=== PATIENT | female | born 1960 | race Hispanic/Latino ===

== ENCOUNTER 2021-03-17 16:36 | Emergency (ER) | payer OTHER ==
--- OUTSIDE RECORDS SUMMARY | 2021-03-17 16:39 | XMS REPORT | Continuity of Care Document ---
:1960 Author Organization [facility] t Address [address] [place] [address] Care Team Providers Name Role Phone Pcp, Does Not Have A Primary Care Physician Yong MOREAU Attending Clinician Unavailable Only, Db Test Attending Clinician Unavailable Unknown Attending Clinician Unavailable UNKNOWN Attending Clinician Unavailable Doctor Unassigned, Name Attending Clinician Unavailable Sherry MOREAU Attending Clinician Unavailable Janis Cohn DO Attending Clinician Jax PUENTES Attending Clinician Payers Payer Name Policy Type Policy Number Effective Date Expiration Date Kuldip paula MEDICARE PART A [id number] 2011 \T\ B 00:00:00 MEDICAID OF [place] [id number] 2012 00:00:00 Problems Condition Condition Condition Status Onset Resolution Last Treating Co mments Source Name Details Category Date Date Treatment Clinician Date Polycythem Polycythem Disease Active U ankush ia ia 8-15 ity of 00:00: [place] [address] Medical Branch General General Disease Active Overview: Univ ers counseling counseling 8-14 ICD10 it y of and advice and advice 00:00: Diagnosis [place] for for 00 Term Medical contracept contracept [employer] Branch tee tee Utility management management Encounter Encounter Disease Active Overview: [facility] for for 8-14 ICD10 ity of sterilizat sterilizat 00:00: Diagnosis [place] ion ion 00 Term Medical [employer] Branch Utility Lipoma of [place] of Disease Active Uni vers back back 8-14 ity of 00:00: [place] [address] Medical Branch Allergies, Adverse Reactions, Alerts Allergy Allergy Status Severity Reaction(s) Onset Inactive Treating Comm ents Source Name Type Date Date Clinician NO KNOWN Drug Active Univers ALLERGIE Class ity of S [facility] Acyclovi Adverse Active Generalized [facility] Reaction hives [facility] Social History Social Habit Start Date Stop Date Quantity Comments Source Alcohol Comment occasional Universit y [facility] Sex Assigned At [facility] y of [facility] Exposure to Not sure [facility] SARS-CoV-2 [facility] (event) [place] Tobacco use and 2020-05-20 2020-05-20 Never used Universit y of exposure 00:00:00 00:00:00 [facility] Alcohol intake 2020-05-20 2020-05-20 Current drinker of Un iversity of 00:00:00 00:00:00 [facility] [place] Smoking Status Start Date Stop Date Source Unknown if ever smoked [facility] y [facility] Never smoker [facility] Medications Ordered Filled Start Stop Current Ordering Indication Dosage Frequency Signature Comments Components Source Medication Medication Date Date Medication? Clinician (SIG) Name Name JAKAFI 5 mg Yes [id number] TAKE 1 Univers Tab 6-11 TABLET BY ity of 00:00: MOUTH [place] EVERY DAY Medical Branch JAKAFI 5 mg Yes [id number] TAKE 1 Univers Tab 6-11 TABLET BY ity of 00:00: MOUTH [place] EVERY DAY [facility] Acyclovir Acyclovir Yes Traci [address] [facility] 00[facility] ent Clinics aspirin 81 Yes 81mg Take 81 mg U nivers mg chewable 10-27 by mouth ity of tablet 14:32: daily. [address] FLUTICASONE Yes 2{spray 2 Sprays Univers PROPIONATE, 10-27 } daily. ity of BULK, MISC 14:32: [address] Olopatadine Yes 1[drp] Place 1 U nivers (PATADAY) 8 Drop in ity of 0.2 % 14:32: each eye. [place] [facility] [address] [place] [address] drops [place] aspirin 81 Yes 81mg Take 81 mg U nivers mg chewable 10-27 by mouth ity of tablet 14:32: daily. [address] FLUTICASONE Yes 2{spray 2 Sprays Univers PROPIONATE, 10-27 } daily. ity of BULK, [facility] 14:32: [address] Olopatadine Yes 1[drp] Place 1 U nivers (PATADAY) 10-27 Drop in ity of 0.2 % 14:32: each eye. [place] ophthalmic Medical drops Branch hydroxyurea Yes 1500mg Take 3 Un bimal (HYDREA) 8-06 Caps by ity of 500 mg 00:00: mouth [place] capsule 00 daily. Medical Branch hydroxyurea Yes 1500mg Take 3 Un bimal (HYDREA) 8-06 Caps by ity of 500 mg 00:00: mouth [place] capsule 00 daily. [facility] Branch Aspirin Aspirin Yes Traci [address] [facility] Clinics Jakafi Jakafi Yes Traci [address] [facility] Clinics Vital Signs Vital Name Observation Time Observation Value Comments Source Systolic blood 2020-05-20 17:25:00 159 mm[Hg] Univer sity of pressure [facility] Diastolic blood 2020-05-20 17:25:00 78 mm[Hg] Unive rsity of [facility] Heart rate 2020-05-20 17:24:00 73 /min [facility] Body temperature 2020-05-20 17:24:00 36.17 [facility] Respiratory rate 2020-05-20 17:24:00 17 /min [facility] Body weight 2020-05-20 17:24:00 72.576 kg [facility] BMI 2020-05-20 17:24:00 25.06 kg/m2 [facility] Oxygen saturation in 2020-05-20 17:24:00 98 /min [facility] blood by [facility] Pulse oximetry Branch Procedures Procedure Date / Time Performed Performing Clinician [facility] e CONSENT/REFUSAL FOR 2020-05-20 17:26:41 [facility], [facility] Name Medical [place] TREATMENT NOTICE OF PRIVACY 2020-05-20 17:22:54 Doctor [facility]assigned, No [facility] Name Medical [place] Encounters Start End Encounter Admission Attending Care Care Encounter Source Date/Time Date/Time Type Type Clinicians Facility Department ID 2021-01-26 Emergency [facility] [id number] Univers 00:28:19 ity of [facility] 2020-12-14 2020-12-14 Telephone [place] [id number] Univers 00:00:00 00:00:00 [place] RANDHAWA [id number] it y of HOSPITAL [id number] Viktor as [phone] [facility] 019 [place] 2020-12-13 2020-12-13 Laboratory Only, Ang Db Test [facility] [id number] Univers 13:29:55 13:44:55 Only Unknown, Attending Health [id number] ity of [place] [id number] Viktor as Ephraim?Blea [phone] [address] Medical Office Building 2020-12-13 2020-12-13 Outpatient R UNKNOWN, [facility] [id number] Univers 13:30:00 13:30:00 ATTENDING ity of [facility] 2020-12-13 2020-12-13 Letter Doctor DUARTE [id number] Univers 00:00:00 00:00:00 (Out) Unassigned, EDIS [id number] ity of [facility] [id number] Viktor as [id number] [facility] 044 [place] 2020-12-13 2020-12-13 Letter Doctor FELICIA [id number] Univers 00:00:00 00:00:00 (Out) Unassigned, EDIS [id number] ity of [place] [facility] [id number] Viktor as [phone] [address] 2020-05-31 2020-05-31 Outpatient [facility] [id number] [facility] 2020-05-21 2020-05-21 Outpatient [facility] [id number] [facility] 2020-05-21 2020-05-21 Telephone Alyssa Powell [id number] Univers 00:00:00 00:00:00 EDIS [id number] it y of [facility] [id number] Viktor [id number] [facility] 019 Branch 2020-05-20 2020-05-20 Emergency Lalit Anitra J [facility] [id number] [facility] 11:25:00 12:37:00 Kat Camara [id number] ity [facility] [id number] [facility] [phone] [place] [id number] Branch 2020-02-26 2020-02-26 Outpatient [facility] [id number] [facility] 2020-02-20 2020-02-20 Outpatient [facility] [id number] [facility] 2020-02-16 2020-02-16 Outpatient [facility] [id number] [facility] 2020-01-23 2020-01-23 Outpatient [facility] [id number] [facility] 2019-12-26 2019-12-26 Outpatient [facility] [id number] [facility] 2019-12-26 2019-12-26 Outpatient [facility] [id number] [facility] 2019-11-10 2019-11-10 [facility] [id number] 11:24:00 11:24:00 [email or web address] [place] [facility] Clin[facility] 2019-08-31 2019-08-31 [facility] [id number] 08:51:00 08:51:00 [facility] Outpati ent Clinics 2019-08-31 2019-08-31 [facility] [id number] 08:00:00 08:00:00 [facility] Outpati ent Clinics 2018-08-02 2018-08-02 [facility] [id number] 08:00:00 08:00:00 [facility] Out[facility] Clinics 2018-07-29 2018-07-29 [facility] [id number] 16:00:00 16:00:00 [facility] Outpat[facility] Clinics 2018-06-08 2018-06-08 [facility] [id number] 11:40:00 11:40:00 [facility] Outpat[facility] ent Clinics 2018-03-17 2018-03-17 [facility] [id number] 15:00:00 15:00:00 [facility] Outpat[facility] ent Clinics Results This patient has no known results.
--- NOTE | 2021-03-17 17:42 | RAD REPORT ---
EXAM DESCRIPTION: CT - Head Brain Wo Cont - 03/17/2021 5:27 pm CLINICAL HISTORY: TRAUMA COMPARISON: No comparisons TECHNIQUE: Axial 5 mm thick images of the head were obtained without IV contrast. All CT scans are performed using dose optimization technique as appropriate and may include automated exposure control or mA/KV adjustment according to patient size. FINDINGS: No intracranial hemorrhage, mass, edema or shift of mid-line structures. No acute cortical based infarction. There is a small wedge-shaped area of CSF attenuation in the inferior left cerebel lum probably old ischemic insult. No measurable atrophy or chronic ischemic change. No abnormal extra -axial fluid collections. Ventricles are normal. Arterial and physiologic calcifications are present. Right-side mastoid air cells are clear. No paranasal sinus acute finding. Left side mastoid air cells are only partially aerated as a developmental variant. No acute bony findings. Small scalp hematoma seen overlying the right lateral orbital ridge. IMPRESSION: Negative non-contrast CT head examination for acute intracranial finding. Small scalp hematoma overlying the lateral right orbital ridge.
--- NOTE | 2021-03-17 18:11 | RAD REPORT ---
EXAM DESCRIPTION: RAD - Wrist Left 3 View - 03/17/2021 5:44 pm CLINICAL HISTORY: PAIN COMPARISON: Head Brain Wo Cont dated 04/27/2019No comparisons FINDINGS: Transverse fracture is present through the metaphyseal portion of the distal left radius. Approximately 30 degree dorsal angulation is present. Carpal bones remain normally positioned to the distal radial fracture fragment. Tip of the ulna styloid is fractured. There is an additional longitu dinal fracture through the ulna styloid. There is no dislocation or periosteal reaction noted. No for eign body or other soft tissue abnormality. Degenerative changes are present at the trapezium first metacarpal articulation. IMPRESSION: Distal left radius fracture with 30 degree dorsal angulation deformity. Fracture of the ulna styloid as detailed.
[2021-03-17] MEDS ORDERED: DERMABOND SKIN ADHESIVE TOP ONE (18:19)
--- NOTE | 2021-03-17 18:26 | EDPHYS ---
Physician Documentation [facility] Name: Salome Berumen Age: 60 yrs Sex: Female : 1960 Arrival Date: 03/17/2021 Time: 16:37 Bed 20 Private MD: ED Physician Tru Ovalles HPI: 03/17 18:12 This 60 yrs old Female presents to ER via Wheelchair with complaints of Arm jr8 Injury, Fall Injury. 18:12 This is a 60-year-old female patient that presented to the emergency room after jr8 sustaining an accidental fall. Patient hit the right side of her head and left wrist trying to catch her self. Pain to those areas since fall. Denies any other trauma at this time. Patient also denies loss consciousness.. Historical: - Allergies: 16:53 No Known Allergies; ww - Home Meds: 16:53 Jakafi 5 mg oral tab [Active]; aspirin 81 mg Oral tab [Active]; ww - PMHx: 16:53 polycythemia; ww - Immunization history:: Client reports receiving the 2nd dose of the Covid vaccine. - Social history:: Smoking status: Patient denies any tobacco usage or history of. ROS: 18:12 Eyes: Negative for injury, pain, redness, and discharge, ENT: Negative for injury, jr8 pain, and discharge, Neck: Negative for injury, pain, and swelling, Cardiovascular: Negative for chest pain, palpitations, and edema, Respiratory: Negative for shortness of breath, cough, wheezing, and pleuritic chest pain, Abdomen/GI: Negative for abdominal pain, nausea, vomiting, diarrhea, and constipation, Back: Negative for injury and pain. 18:12 MS/extremity: Positive for ecchymosis, pain, swelling, tenderness, of the Left wrist. 18:12 Skin: Positive for abrasion(s). 18:12 Neuro: Positive for headache. Exam: 18:03 Eyes: Pupils equal round and reactive to light, extra-ocular motions intact. Lids and jr8 lashes normal. Conjunctiva and sclera are non-icteric and not injected. Cornea within normal limits. Periorbital areas with no swelling, redness, or edema. ENT: Nares patent. No nasal discharge, no septal abnormalities noted. Tympanic membranes are normal and external auditory canals are clear. Oropharynx with no redness, swelling, or masses, exudates, or evidence of obstruction, uvula midline. Mucous membranes moist. Neck: Trachea midline, no thyromegaly or masses palpated, and no cervical lymphadenopathy. Supple, full range of motion without nuchal rigidity, or vertebral point tenderness. No Meningismus. Chest/axilla: Normal chest wall appearance and motion. Nontender with no deformity. No lesions are appreciated. Cardiovascular: Regular rate and rhythm with a normal S1 and S2. No gallops, murmurs, or rubs. Normal PMI, no JVD. No pulse deficits. Respiratory: Lungs have equal breath sounds bilaterally, clear to auscultation and percussion. No rales, rhonchi or wheezes noted. No increased work of breathing, no retractions or nasal flaring. Abdomen/GI: Soft, non-tender, with normal bowel sounds. No distension or tympany. No guarding or rebound. No evidence of tenderness throughout. Back: No spinal tenderness. No costovertebral tenderness. Full range of motion. Skin: Warm, dry with normal turgor. Normal color with no rashes, no lesions, and no evidence of cellulitis. 1 inch superficial laceration noted to the left middle finger at the proximal phalange. Neuro: Awake and alert, GCS 15, oriented to person, place, time, and situation. Cranial nerves II-XII grossly intact. Motor strength 5/5 in all extremities. Sensory grossly intact. Cerebellar exam normal. Normal gait. 18:03 Head/face: Noted is hematoma, that is mild, of the forehead. 18:03 Musculoskeletal/extremity: Extremities: grossly normal except: noted in the left wrist: ecchymosis, pain, swelling, tenderness, noted in the right knee: abrasion, patella, ROM: limited active range of motion, in the left wrist, limited passive range of motion, in the left wrist, limited active range of motion due to pain, in the left wrist, limited passive range of motion due to pain, in the left wrist, Pulses: noted to be 2+ in the right radial artery and left radial artery, Sensation intact. Vital Signs: 16:52 BP 148 / 80; Pulse 95; Resp 18; Temp 99.1; Pulse Ox 99% on R/A; Weight 49.9 kg; Height ww 5 ft. 7 in. (170.18 cm); Pain 10/10; 17:57 BP 144 / 72; Pulse 84; Resp 17; Pulse Ox 100% ; Pain 10/10; eo2 18:55 BP 157 / 73; Pulse 78; Resp 17; Pulse Ox 100% on R/A; Pain 9/10; eo2 16:52 Body Mass Index 17.23 (49.90 kg, 170.18 cm) ww Procedures: 18:03 Splinting: Splint applied to left wrist using Orthoglass splint, applied by tech. jr8 Examined by me, post splint application: neurovascular intact, 2+ distal pulses palpable, brisk capillary refill noted, Patient tolerated well. Laceration: 18:23 Wound Repair of 2.5cm ( 1.0in ) partial thickness laceration to left hand. Linear jr8 shaped.. Minimal bleeding noted.. Distal neuro/vascular/tendon intact. Wound prep: Simple cleansing with hibiclenz, Wound explored minimally. Skin closed with 1 thin layer Adhesive skin closure using Dermabond. Patient tolerated well. MDM: 17:04 Patient medically screened. jr8 18:03 Data reviewed: vital signs, nurses notes, radiologic studies, CT scan, plain films. jr8 Data interpreted: Pulse oximetry: on room air is 100 %. Interpretation: normal. Counseling: I had a detailed discussion with the patient and/or guardian regarding: the historical points, exam findings, and any diagnostic results supporting the discharge/admit diagnosis, radiology results, the need for outpatient follow up, a orthopedic surgeon, to return to the emergency department if symptoms worsen or persist or if there are any questions or concerns that arise at home. 03/17 17:02 Order name: CT Head Brain wo Cont; Complete Time: 17:52 ww 03/17 17:02 Order name: XRAY Wrist LEFT 3 view; Complete Time: 18:17 ww 03/17 18:03 Order name: Sugar Tong Forearm Splint; Complete Time: 18:51 jr8 Administered Medications: No medications were administered Disposition: 03/18 18:52 Co-signature as Attending Physician, Tru Ovalles MD I agree with the assessment and alberto plan of care. Disposition Summary: 03/17/21 18:25 Discharge Ordered Location: Home jr8 Problem: new jr8 Symptoms: have improved jr8 Condition: Stable jr8 Diagnosis - Distal Ulnar Fracture jr8 - Distal Radius Fracture jr8 Followup: jr8 - With: Rios Petersen MD - When: 2 - 3 days - Reason: Recheck today's complaints, Continuance of care, Re-evaluation by your physician Discharge Instructions: - Discharge Summary Sheet jr8 - Wrist Fracture Treated With Immobilization jr8 Forms: - Medication Reconciliation Form jr8 - Thank You Letter jr8 - Antibiotic Education jr8 - Prescription Opioid Use jr8 Prescriptions: - Tylenol-Codeine #3 300 mg-30 mg Oral - take 2 tablet by ORAL route every 8 hours As needed; 16 tablet; Refills: 0, jr8 Product Selection Permitted Signatures: Dispatcher [employer] EDMS Tru Ovalles MD MD cha Roszak, Josh, PA PA jr8 Danii Souza RN RN ww Corrections: (The following items were deleted from the chart) 03/17 18:24 18:03 Eyes: Pupils equal round and reactive to light, extra-ocular motions intact. Lids jr8 and lashes normal. Conjunctiva and sclera are non-icteric and not injected. Cornea within normal limits. Periorbital areas with no swelling, redness, or edema. ENT: Nares patent. No nasal discharge, no septal abnormalities noted. Tympanic membranes are normal and external auditory canals are clear. Oropharynx with no redness, swelling, or masses, exudates, or evidence of obstruction, uvula midline. Mucous membranes moist. Neck: Trachea midline, no thyromegaly or masses palpated, and no cervical lymphadenopathy. Supple, full range of motion without nuchal rigidity, or vertebral point tenderness. No Meningismus. Chest/axilla: Normal chest wall appearance and motion. Nontender with no deformity. No lesions are appreciated. Cardiovascular: Regular rate and rhythm with a normal S1 and S2. No gallops, murmurs, or rubs. Normal PMI, no JVD. No pulse deficits. Respiratory: Lungs have equal breath sounds bilaterally, clear to auscultation and percussion. No rales, rhonchi or wheezes noted. No increased work of breathing, no retractions or nasal flaring. Abdomen/GI: Soft, non-tender, with normal bowel sounds. No distension or tympany. No guarding or rebound. No evidence of tenderness throughout. Back: No spinal tenderness. No costovertebral tenderness. Full range of motion. Skin: Warm, dry with normal turgor. Normal color with no rashes, no lesions, and no evidence of cellulitis. Neuro: Awake and alert, GCS 15, oriented to person, place, time, and situation. Cranial nerves II-XII grossly intact. Motor strength 5/5 in all extremities. Sensory grossly intact. Cerebellar exam normal. Normal gait. jr8
--- NOTE | 2021-03-17 18:26 | ER ---
Nurse's Notes [facility] Name: Salome Berumen Age: 60 yrs Sex: Female : 1960 Arrival Date: 03/17/2021 Time: 16:37 Bed 20 Private MD: Diagnosis: Distal Ulnar Fracture;Distal Radius Fracture Presentation: 03/17 16:52 Chief complaint: Patient states: Tripped and fell and hit right forehead and left wrist ww pain. Coronavirus screen: Vaccine status: Patient reports receiving the 2nd dose of the covid vaccine. Client denies travel out of the [place] in the last 14 days. Ebola Screen: Patient negative for fever greater than or equal to 101.5 degrees Fahrenheit, and additional compatible Ebola Virus Disease symptoms Patient denies exposure to infectious person. Patient denies travel to an Ebola-affected area in the 21 days before illness onset. Initial Sepsis Screen: Does the patient meet any 2 criteria? No. Patient's initial sepsis screen is negative. Does the patient have a suspected source of infection? No. Patient's initial sepsis screen is negative. Risk Assessment: Do you want to hurt yourself or someone else? Patient reports no desire to harm self or others. Onset of symptoms was March 17, 2021. Care prior to arrival: Bleeding of injury controlled. Ice pack applied to injury. 16:52 Method Of Arrival: Wheelchair ww 16:52 Acuity: CAIN 3 ww Triage Assessment: 16:53 General: Appears uncomfortable, Behavior is appropriate for age, crying. Pain: ww Complains of pain in forehead, right eye, right tenriism, left hand and left arm. EENT:. Neuro: Level of Consciousness is awake, alert, obeys commands, Oriented to person, place, time, situation, Appropriate for age Speech is normal, Denies blurred vision dizziness, numbness. Cardiovascular: Denies chest pain, shortness of breath, Capillary refill < 3 seconds. Respiratory: Airway is patent Respiratory effort is even, unlabored, Respiratory pattern is regular, symmetrical. GI: No deficits noted. No signs and/or symptoms were reported involving the gastrointestinal system. : No deficits noted. No signs and/or symptoms were reported regarding the genitourinary system. Derm: Skin is pink, warm \T\ dry. left finger abrasions and swelling to right forehead. Musculoskeletal: Circulation, motion, and sensation intact. Capillary refill Reports pain in face, left hand and left arm. Injury Description: Deformity sustained to left hand and left arm. Historical: - Allergies: 16:53 No Known Allergies; ww - Home Meds: 16:53 Jakafi 5 mg oral tab [Active]; aspirin 81 mg Oral tab [Active]; ww - PMHx: 16:53 polycythemia; ww - Immunization history:: Client reports receiving the 2nd dose of the Covid vaccine. - Social history:: Smoking status: Patient denies any tobacco usage or history of. Screenin:57 Abuse screen: Denies threats or abuse. Nutritional screening: No deficits noted. eo2 Tuberculosis screening: No symptoms or risk factors identified. Fall Risk None identified. Assessment: 17:57 General: Appears uncomfortable, Behavior is cooperative, anxious, crying. Pain: eo2 Complains of pain in left wrist. Neuro: Level of Consciousness is awake, alert, Oriented to person, place, time, situation, Denies dizziness, headache. Cardiovascular: No deficits noted. Respiratory: No deficits noted. Derm: hematoma to right eyebrow/forehead, abrasion to right knee, laceration to left 3rd digit. Musculoskeletal: Bony deformity noted of left wrist Reports weakness in left hand pain in left hand and forehead. Musculoskeletal: Reports Denies numbness in, left hand. Injury Description:. 18:32 Reassessment: left middle finger cleaned, dermabond placed by Ramon ALVAREZ, splint being eo2 applied by tech. Marco Antonio Pt in NAD. Will continue to monitor. Vital Signs: 16:52 BP 148 / 80; Pulse 95; Resp 18; Temp 99.1; Pulse Ox 99% on R/A; Weight 49.9 kg; Height ww 5 ft. 7 in. (170.18 cm); Pain 10/10; 17:57 BP 144 / 72; Pulse 84; Resp 17; Pulse Ox 100% ; Pain 10/10; eo2 18:55 BP 157 / 73; Pulse 78; Resp 17; Pulse Ox 100% on R/A; Pain 9/10; eo2 16:52 Body Mass Index 17.23 (49.90 kg, 170.18 cm) ww ED Course: 16:37 Patient arrived in ED. am2 16:53 Triage completed. ww 16:53 Arm band placed on right wrist. Affected limb iced. ww 17:04 Ramon Do PA is PHCP. jr8 17:04 Tru Ovalles MD is Attending Physician. jr8 17:27 CT Head Brain wo Cont In Process Unspecified. EDMS 17:44 XRAY Wrist LEFT 3 view In Process Unspecified. EDMS 17:45 Orthoglass splint: Sugar tong splint applied on left arm. eo2 17:57 Giselle Trejo, RN is Primary Nurse. eo2 17:57 Bed in low position. Call light in reach. Adult w/ patient. Pulse ox on. NIBP on. Door eo2 closed. Noise minimized. Warm blanket given. 17:57 No provider procedures requiring assistance completed. Patient did not have IV access eo2 during this emergency room visit. 18:25 Rios Petersen MD is Referral Physician. jr8 Administered Medications: No medications were administered Outcome: 18:25 Discharge ordered by . jr8 18:30 Instructed on splint care instructions, neurovascular checks, verbalized understanding eo2 18:56 Admitted to eo2 18:56 Condition: stable 18:56 Discharge instructions given to patient, Instructed on discharge instructions, follow up and referral plans. medication usage, Demonstrated understanding of instructions, follow-up care, medications, Prescriptions given X 1. 18:59 Patient left the ED. eo2 Signatures: Dispatcher [employer] EDTX Ramon Do PA PA jr8 Norah Bonilla am2 Danii Souza RN RN Giselle Trejo, PRIETO RN eo2
[2021-03-17 19:21] VITALS: TEMP 99.1
[2021-03-17 19:22] VITALS: O2SAT 100
[2021-03-17 19:24] VITALS: BP 157/73
== END 2021-03-17 18:59 | disposition home or self-care (01) ==
LOC: ER 16:36
PROC: 0JQK0ZZ Repair Left Hand Subcutaneous Tissue and Fascia, Open Approach (ICD-10-PCS; principal; 2021-03-17)
PROC: 2W3DX1Z Immobilization of Left Lower Arm using Splint (ICD-10-PCS; 2021-03-17)
DX: S52.502A Unspecified fracture of the lower end of left radius, initial encounter for closed fracture (principal); S52.602A Unspecified fracture of lower end of left ulna, initial encounter for closed fracture; S61.412A Laceration without foreign body of left hand, initial encounter; W19.XXXA Unspecified fall, initial encounter; Z79.82 Long term (current) use of aspirin
CPT/HCPCS: 70450; 99285